=== PATIENT | male | born 1960 | race Caucasian/White ===

== ENCOUNTER 2016-09-28 21:15 | Emergency (ER) | payer SELFPAY ==
[~2016-09-28] VITALS: Ht 175.3 cm; Wt 76.2 kg
[2016-09-28 21:30] VITALS: BP 127/100
--- NOTE | 2016-09-28 22:21 | NUR ---
PT TAKEN TO [facility] FROM [facility]
--- NOTE | 2016-09-29 00:02 | NUR ---
PATIENT PRESENTS TO ED WITH RIGHT SHOULDER PAIN S/P INJURY WHILE GARDENING X 4 DAYS . PT STATES DENIES N/V/D; SKIN IS PINK/WARM/DRY; AAOX4 WITH EVEN AND STEADY GAIT; LUNGS CLEAR BL; HR EVEN AND REGULAR; PT DENIES ANY FEVER, CP, SOB, OR COUGH AT THIS TIME; PATIENT STATES PAIN OF 10/10 AT THIS TIME; VSS; PATIENT POSITIONED FOR COMFORT; HOB ELEVATED; BEDRAILS UP X2; BED DOWN. ER MD MADE AWARE OF PT STATUS.
--- NOTE | 2016-09-29 00:02 | NUR ---
PT TAKEN TO BED 4
--- NOTE | 2016-09-29 00:06 | NUR ---
Dr. Santos evaluating patient at bedside.
[2016-09-29 01:20] VITALS: BP 119/82
== END 2016-09-29 01:20 | disposition home or self-care (01) ==
LOC: MED 21:15
DX: S46.911A Strain of unspecified muscle, fascia and tendon at shoulder and upper arm level, right arm, initial encounter (principal); R03.0 Elevated blood-pressure reading, without diagnosis of hypertension; Z88.0 Allergy status to penicillin; X58.XXXA Exposure to other specified factors, initial encounter; Y93.89 Activity, other specified; Y92.89 Other specified places as the place of occurrence of the external cause; Y99.0 Civilian activity done for income or pay
CPT/HCPCS: 73030; 99284